=== PATIENT | female | born 1960 | race Caucasian/White ===

== ENCOUNTER 2021-12-01 07:17 | Day surgery (SDC) | payer BC ==
[~2021-12-01 07:17] MED LIST: Sodium Chloride 0.9% 10 ML Syringe FLUSH PRN
[2021-12-01] MEDS ORDERED: Propofol 200 MG/20 ML SDV IV ONE (07:18)
[2021-12-01] MEDS ORDERED: Lidocaine 1% PF 2 ML SDV INJECT ONE (07:18)
[2021-12-01] MEDS: Lactated Ringers 1,000 ML IV SCH (07:45)
[2021-12-01] MEDS: Simethicone Drops 40 MG/0.6 ML 30 ML Bottle ONE (08:35)
[2021-12-01 15:22] VITALS: BP 110/74; PULSE 59
== END 2021-12-01 10:00 | disposition home or self-care (01) ==
LOC: FB.SDS 07:17
PROVIDERS: ATTEND Surgery
DX: Z12.11 Encounter for screening for malignant neoplasm of colon (principal); Z79.899 Other long term (current) drug therapy; Z88.8 Allergy status to other drugs, medicaments and biological substances; Z98.890 Other specified postprocedural states
CPT/HCPCS: 00812-QZ; A9270-GY; J2704; J7120